=== PATIENT | female | born 1995 | race Caucasian/White ===

== ENCOUNTER → 2017-04-30 | Outpatient (CLI) | payer OTHER ==
[2017-04-30 09:25] LABS: TOTAL PROTEIN,URINE 12.8 mg/dl (0-11.9)
== END | disposition home or self-care (01) ==
LOC: LAB 08:56
PROVIDERS: ATTEND Specialist
DX: I10 Essential (primary) hypertension (principal); Z3A.17 17 weeks gestation of pregnancy
CPT/HCPCS: 81050; 84157

== ENCOUNTER → 2017-08-20 | Outpatient (CLI) | payer SELFPAY ==
[2017-08-20 10:01] LABS: TOTAL PROTEIN,URINE 22.3 mg/dl (0-11.9)
== END | disposition home or self-care (01) | DRG 305 ==
LOC: LAB 09:28
PROVIDERS: ATTEND Specialist
DX: I10 Essential (primary) hypertension (principal); Z3A.33 33 weeks gestation of pregnancy; R82.99 Other abnormal findings in urine
CPT/HCPCS: 81050; 84157